=== PATIENT | female | born 1975 | race African-American/Black ===

== ENCOUNTER 2020-02-11 13:56 | Outpatient (CLI) | payer OTHER ==
--- NOTE | 2020-02-11 14:45 | RAD ---
AP AND FROGLEG VIEWS OF THE PELVIS TWO VIEWS: 02/11/20 HISTORY: Low back and bilateral hip pain. Pelvic ring is intact. There is no evidence of fracture. SI joints are symmetric. No diastasis of the symphysis. Hip joints appear normal. Scoliotic changes of the spine is noted. IMPRESSION: Unremarkable pelvis. POS: JU
--- NOTE | 2020-02-11 14:49 | RAD ---
RIGHT KNEE TWO VIEWS: 02/11/20 HISTORY: Bilateral knee pain. Minimal osteophytic change of the patellofemoral joint space. Suggestion of some slight medial compar tment narrowing. No joint effusion. IMPRESSION: Minimal arthritic change of the knee. POS: JU
--- NOTE | 2020-02-11 14:50 | RAD ---
LEFT KNEE TWO VIEWS: 02/11/20 HISTORY: Bilateral knee pain. There is some small patellofemoral spurs. There is also mild medial compartment joint space narrowing . No joint effusion. IMPRESSION: Mild arthritic changes of the knee. Slightly more pronounced than the right knee. POS: JU
--- NOTE | 2020-02-11 14:51 | RAD ---
LUMBAR SPINE SERIES TWO VIEWS: 02/11/20 HISTORY: Back pain. Fairly pronounced scoliotic change convexed to the right. Vertebral bodies maintain normal height. De generative osteophytic changes are more confined to the thoracolumbar region. Disc space height is al l fairly well preserved except at T12-L1 level where there is disc narrowing. Pedicles are intact. IMPRESSION: Marked scoliosis of the convexed to the right. POS: JU
== END 2020-02-11 13:57 | disposition home or self-care (01) ==
LOC: SCSRAD 13:56
DX: M47.896 Other spondylosis, lumbar region (principal); M41.9 Scoliosis, unspecified; M17.0 Bilateral primary osteoarthritis of knee
CPT/HCPCS: 72100; 72190

== ENCOUNTER 2020-02-17 17:51 | Outpatient (CLI) | payer OTHER ==
--- NOTE | 2020-02-17 18:53 | RAD ---
XR Humerus Lt 2 View STANDARD History: Pain. Fall Comparison: Radiograph 2014 Findings: Old humeral fracture with plate and screw fixation which is partially pulled off proximally . Absent proximal most screw. No acute fracture. Impression: Similar appearance of the humeral hardware which is partially pulled off proximally with absent superior most screw. No definite acute fracture is appreciated.
== END 2020-02-17 17:52 | disposition home or self-care (01) ==
LOC: SCSRAD 17:51
DX: M79.602 Pain in left arm (principal); Z98.890 Other specified postprocedural states